=== PATIENT | female | born 1980 | race Hispanic/Latino ===

== ENCOUNTER 2018-07-31 03:39 | Emergency (ER) | payer OTHER ==
[2018-07-31] MEDS ORDERED: Ondansetron HCl/PF 4 MG/2 ML Vial ONE (04:24)
[2018-07-31] MEDS ORDERED: methylPREDNISolone Sod Succ/PF 125 MG/2 ML VIAL ONE (04:25)
[2018-07-31 04:34] LABS: Clarity Slightly Cloudy (Clear); Leukocyte Negative (Negative); Specific Gravity, Urine 1.025 (1.005-1.030)
[2018-07-31 04:35] LABS: Bilirubin Negative (Negative); Blood, Urine Large (Negative); Glucose, Urine (Dipstick) Negative (Negative); Nitrite Negative (Negative); Protein, Urine (Dipstick) > or equal to 300 mg/dL (Neg-Trace); Urobilinogen 0.2 mg/dL (0.2-1.0)
[2018-07-31 04:37] LABS: #Basophils 0.2 thou/uL (0.0-0.2); #Eosinphils 0.2 thou/uL (0.0-0.7); #Lymphocytes 3.1 thou/uL (1.20-3.40); #Monocytes 0.8 thou/uL (0.11-0.59); #Neutrophils 4.7 thou/uL (1.40-6.50); %Basophils 1.7 % (0.0-1.0); %Eosinophils 2.7 % (0.0-10.0); %Lymphocytes 34.4 % (21.0-51.0); %Monocytes 8.7 % (0.0-10.0); %Neutrophils 52.5 % (42.0-75.0); Hemoglobin 12.9 g/dL (12.0-16.0); Mean Corpuscular HGB CONC 32.6 g/dL (32.0-36.0); Mean Corpuscular Hemoglobin 28.1 pg (27.0-31.0); Mean Corpuscular Volume 86.3 fL (78.0-98.0); Mean Platelet Volume 8.3 fL (7.4-10.4); Platelet Count 403 thou/uL (130-400); RBC Distribution Width 12.9 % (11.5-14.5); Red Blood Cell (RBC) Count 4.59 mill/uL (4.20-5.40); White Blood Cell (WBC) Count 8.9 thou/uL (4.8-10.8)
[2018-07-31 04:40] LABS: ALT (SGPT) 31 U/L (8-55); AST (SGOT) 28 U/L (5-34); Albumin 3.5 g/dL (3.5-5.0); Alkaline Phosphatase 87 U/L (40-150); Anion Gap 13 mmol/L (10-20); BUN (Urea Nitrogen) 6 mg/dL (7.0-18.7); Bilirubin, Total 0.3 mg/dL (0.2-1.2); Calc. Creatinine Clearance 0 mL/min (70-130); Calcium 9.4 mg/dL (7.8-10.44); Carbon Dioxide 22 mmol/L (22-29); Chloride 106 mmol/L (98-107); Estimated GFR-MDRD Greater than 90; Globulin 4.3 g/dL (2.4-3.5); Glucose 114 mg/dL (70-105); Lipase 21 U/L (8-78); Protein, Total 7.8 g/dL (6.0-8.3); Sodium 137 mmol/L (136-145)
[2018-07-31 04:42] LABS: Bacteria/HPF 3+ HPF (None Seen); Squamous Epithelial None Seen HPF (0-3); WBC/HPF 0-3 HPF (0-3); Yeast-All Forms 2+ HPF (None Seen)
[2018-07-31] MEDS ORDERED: Ciprofloxacin Lactate/D5W 400 mg/200 ml Premix ONE (05:15)
[2018-07-31] MEDS ORDERED: Phenazopyridine HCl 97.5 MG TABLET ONE (06:27)
[2018-07-31] MEDS ORDERED: Fentanyl 100 MCG/2 ML VIAL ONE (06:27)
--- NOTE | 2018-08-01 09:36 | CT ---
PRELIMINARY REPORT/[facility]/EMERGENTY AFTER-HOURS PROCEDURE CT Abdomen and Pelvis Without Intravenous Contrast EXAM DATE/TIME: 07/31/2018 4:36 AM CLINICAL HISTORY: 38 years old, female; Pain; Abdominal pain; Other: Low pelvic llq area; Prior surgery; Surgery date: 6+ months; Surgery type: Tubal; Patient HX: HX of ulcesative colitis & celiac dx TECHNIQUE: Axial computed tomography images of the abdomen and pelvis without intravenous contrast. All CT scans at this facility use at least one of these dose optimization techniques: automated expos ure control; mA and/or kV adjustment per patient size (includes targeted exams where dose is matched to clinical indication); or iterative reconstruction. COMPARISON: No relevant prior studies available. FINDINGS: Lower thorax: No acute findings. ABDOMEN: Liver: Unremarkable. Gallbladder and bile ducts: Unremarkable. Pancreas: Unremarkable. Spleen: Unremarkable. Adrenals: Unremarkable. Kidneys and ureters: Unremarkable. Stomach and bowel: Unremarkable. No obstruction. Appendix: Mildly enlarged in the midportion measuring 11 mm with thin peripheral calcification. No bryant rrounding inflammatory changes appreciated. PELVIS: Bladder: Unremarkable as visualized. Reproductive: Unremarkable as visualized. ABDOMEN and PELVIS: Intraperitoneal space: No free air. No significant fluid collection. Bones/joints: No acute fracture. No dislocation. Soft tissues: Unremarkable. Vasculature: Unremarkable. Lymph nodes: No enlarged lymph nodes. IMPRESSION: 1. No acute findings. 2. Mild enlarged appendix with thin peripheral calcification may represent a small mucocele. Thank you for allowing us to participate in the care of your patient. Dictated and Authenticated by: Joss Brenner MD 07/31/2018 6:11 AM Central Time ([place] & [place]) FINAL REPORT CT ABDOMEN AND PELVIS WITHOUT CONTRAST: DATE: 07/31/2018. FINDINGS: Spiral CT of the abdomen and pelvis was performed for evaluation of lower abdominal pain, particularl y on the left. Axial slices were acquired and coronal and sagittal reconstructions were done. I hea r there is a history of prior inflammatory bowel disease. The lung bases are clear. No infiltrate or effusion was seen. The liver was slightly prominent in s ize but appears normal internally. The spleen, pancreas, gallbladder, adrenal glands, kidneys, and a bdominal aorta appeared normal within the limitations of a noncontrast study. There are no inflammatory changes of bowel appreciated. The bowel wall thickness of the right colon is slightly larger than the left, but there is no inflammatory change around it. This is likely hoister kari. Attenuation is drawn to the appendix which is mildly dilated measuring up to 11 mm in its mid p ortion with an area of peripheral calcifications. There is no inflammatory change around it. Being that this is remote from the site of symptoms (if I have the history correct), the possibility of a m ucocele might be considered. On the left side, there is no sign of diverticulitis, colitis, or adnex al abnormality. The CT of the pelvis was unremarkable for all of these entities. There is no free f luid in the pelvis. IMPRESSION: 1. No acute abdominal or pelvic findings to explain the patient's symptoms. 2. Dilation of the mid appendix with peripheral calcification and no obvious inflammatory change. A mucocele might be considered. 3. The thickness of the wall of the right colon is slightly more than the rest of the colon. In the absence of any inflammatory change around it, this may be a chronic condition, particularly knowing that there is a history of inflammatory bowel disease. Report in agreement with preliminary reading by [facility]. POS: HOME
== END 2018-07-31 06:45 | disposition home or self-care (01) ==
LOC: BURERS 03:39
DX: N30.01 Acute cystitis with hematuria (principal); Z79.899 Other long term (current) drug therapy
CPT/HCPCS: 74176; 80053; 81003; 81015; 83690; 85025; 87086; 96361; 96365; 96375; J0744; J2405; J2930; J3010